=== PATIENT | male | born 1945 | race Caucasian/White ===

== ENCOUNTER 2017-07-04 11:56 | Emergency (ER) | payer MEDICARE, BC ==
[2017-07-04 12:02] VITALS: BP 158/69
[2017-07-04] MEDS ORDERED: Tetan/Diph/Pertus SYR(Tdap)* 0.5 ML SYR(BOOSTRIX) use SYR IM ONE (12:30)
--- NOTE | 2017-07-04 12:53 | UC ---
Bite Injury/Animal HPI - HPI Summary HPI Summary: PT WAS TAKING A WALK IN [facility] ABOUT 30 MIN AGO WHEN HE WAS BITTEN BY A DOG. DOG WAS ON A LEASH BUT THE OWNERS KEPT WALKING. HEALTH DEPT HAS BEEN NOTIFIED AND ARE LOOKING FOR THE DOG TO CONFIRM VACCINATION STATUS. PT HERE FOR TDAP BOOSTER. - History of Current Complaint Chief Complaint: UCBiteInjury Stated Complaint: DOG BITE Time Seen by Provider: 07/04/17 12:29 Hx Obtained From: Patient Severity Currently: None Severity Initially: Mild Pain Intensity: 0 Pain Scale Used: 0-10 Numeric Onset/Duration: Sudden Onset, Lasting Minutes, Still Present Type of Bite: Pet Has Animal Been Immunized?: Unknown Character: Abrasion/Laceration Aggravating Factor(s): Nothing Alleviating Factor(s): Nothing Associated Signs And Symptoms: Positive: Negative Hx of Bite: Unprovoked Animal Available for Observation: No Animal Control Notified: Yes - Allergies/Home Medications Allergies/Adverse Reactions: Allergies Allergy/AdvReac Type Severity Reaction Status Date / Time Rituximab [From Rituxan] Allergy Intermediate hives,flush Verified 07/04/17 12: 02 ing PMH/Surg Hx/FS Hx/Imm Hx Endocrine History: Hypothyroidism Cardiovascular History: Atrial Fibrillation Other Cancer History: MULTIPLE MYELOMA - Surgical History Surgical History: Yes Surgery Procedure, Year, and Place: tonsillectomy - Family History Known Family History: Positive: Hypertension - Social History Alcohol Use: Weekly Alcohol Amount: 1 glass Substance Use Type: None Smoking Status (MU): Former Smoker Amount Used/How Often: 1/2 ppd Length of Time of Smoking/Using Tobacco: 25 years Have You Smoked in the Last Year: No When Did the Patient Quit Smoking/Using Tobacco: 11/27/1990 - Immunization History Most Recent Influenza Vaccination: 2016 Most Recent Tetanus Shot: has had in past Most Recent Pneumonia Vaccination: 2014 Review of Systems Constitutional: Negative Skin: Other - ABRASION AT BITE SITE Respiratory: Negative Cardiovascular: Negative Gastrointestinal: Negative All Other Systems Reviewed And Are Negative: Yes Physical Exam Triage Information Reviewed: Yes Appearance: Well-Appearing, No Pain Distress, Well-Nourished Vital Signs: Initial Vital Signs Temp 97.6 F 07/04/17 11:57 Pulse 76 07/04/17 11:57 Resp 18 07/04/17 11:57 BP 158/69 07/04/17 11:57 Pulse Ox 100 08/08/17 11:57 Vital Signs Reviewed: Yes Eyes: Positive: Conjunctiva Clear ENT: Positive: Hearing grossly normal Neck: Positive: Supple Respiratory: Positive: No respiratory distress, No accessory muscle use Cardiovascular: Positive: Pulses Normal Abdomen Description: Positive: Soft Musculoskeletal: Positive: No Edema Neurological: Positive: Alert Psychological: Positive: Abnormal Response To Family Skin: Positive: Other - 5MM ABRASION LEFT POSTERIOR THIGH Bite Injury Course/Dx - Differential Dx/Diagnosis Provider Diagnoses: DOG BITE, TDAP BOOSTER Discharge - Discharge Plan Condition: Stable Disposition: HOME Patient Education Materials: Animal Bite (ED), Abrasion (ED) Referrals: Idris Joel MD [Primary Care Provider] - If Needed Additional Instructions: FOLLOW-UP WITH THE HEALTH DEPARTMENT ABOUT THE DOG'S VACCINATION STATUS. WE DISCUSSED TREATING YOU WITH ANTIBIOTICS TO PREVENT INFECTION SETTING IN THE BITE SITE. GIVEN THE SUPERFICIAL NATURE OF THE ABRASION WE HAVE DECIDED TO HOLD OFF FOR NOW, YOU SHOULD HEAL WITHOUT ANY PROBLEMS BUT BE VIGILANT AND SEEK FOLLOW-UP IF YOU DEVELOP SPREADING REDNESS OF THE SKIN, PURULENT DRAINAGE, FEVER , INCREASED PAIN OR ANY OTHER CONCERNING SYMPTOMS. TETANUS IMMUNIZATION GIVEN (TDAP): You have been given an immunization against tetanus. Please record this in your records. In general, a booster is needed only once every 10 years. The tetanus shot protects against tetanus or "lockjaw," which is a complication of certain wound infections (the tetanus shot cannot protect against the actual infection). The immunization site may become warm and red due to local reaction. If this occurs, apply warm compresses and take aspirin or ibuprofen to reduce inflammation and discomfort. Return for evaluation if the reaction becomes severe.
== END 2017-07-04 12:59 | disposition home or self-care (01) ==
LOC: UCEAST 11:56
DX: T14.8 Other injury of unspecified body region (principal); E03.9 Hypothyroidism, unspecified; I48.91 Unspecified atrial fibrillation; Z87.891 Personal history of nicotine dependence; C90.00 Multiple myeloma not having achieved remission; W54.0XXA Bitten by dog, initial encounter; Z23 Encounter for immunization
CPT/HCPCS: 90471; 90715; 99211; G0463

== ENCOUNTER 2017-07-14 07:19 | Emergency (ER) | payer MEDICARE, BC ==
[2017-07-14] MEDS ORDERED: Rabies Vaccine, PCEC INJ* 1 ml IM ONE (07:29)
--- NOTE | 2017-07-14 07:34 | UC ---
Bite Injury/Animal HPI - HPI Summary HPI Summary: BITTEN BY A DOG WHILE WALKING IN [facility] 07/04/17. CAME HERE AND HAD TDAP BOOSTED. HD WAS LOOKING FOR THE DOG TO CONFIRM VACCINATION STATUS BUT WERE UNABLE TO LOCATE THE DOG. PT HERE FOR RABIES PROPHYLAXIS. IS FEELING WELL TODAY. BITE WOUND WAS VERY SPFL AND IS NOW COMPLETELY HEALED. - History of Current Complaint Stated Complaint: rabies post exposure Time Seen by Provider: 07/14/17 07:27 Hx Obtained From: Patient Severity Currently: None Severity Initially: Mild Pain Intensity: 0 Pain Scale Used: 0-10 Numeric Onset/Duration: Sudden Onset Type of Bite: Pet Has Animal Been Immunized?: Unknown Character: Abrasion/Laceration Aggravating Factor(s): Nothing Alleviating Factor(s): Nothing Associated Signs And Symptoms: Positive: Negative Hx of Bite: Unprovoked Animal Available for Observation: No Animal Control Notified: Yes - Allergies/Home Medications Allergies/Adverse Reactions: Allergies Allergy/AdvReac Type Severity Reaction Status Date / Time Rituximab [From Rituxan] Allergy Intermediate hives,flush Verified 07/14/17 07: 33 ing PMH/Surg Hx/FS Hx/Imm Hx - Additional Past Medical History Additional PMH: RHEUMATOID ARTHRITIS Endocrine History: Hypothyroidism Cardiovascular History: Atrial Fibrillation Other Cancer History: MULTIPLE MYELOMA - Surgical History Surgical History: Yes Surgery Procedure, Year, and Place: tonsillectomy - Family History Known Family History: Positive: Hypertension - Social History Alcohol Use: None Alcohol Amount: 1 glass Substance Use Type: None Smoking Status (MU): Former Smoker Amount Used/How Often: 1/2 ppd Length of Time of Smoking/Using Tobacco: 25 years Have You Smoked in the Last Year: No When Did the Patient Quit Smoking/Using Tobacco: 11/27/1990 - Immunization History Most Recent Influenza Vaccination: 2016 Most Recent Tetanus Shot: UnKnown Most Recent Pneumonia Vaccination: 2014 Review of Systems Constitutional: Negative Skin: Negative Respiratory: Negative Cardiovascular: Negative Gastrointestinal: Negative Neurological: Negative All Other Systems Reviewed And Are Negative: Yes Physical Exam Triage Information Reviewed: Yes Appearance: Well-Appearing, No Pain Distress, Well-Nourished Vital Signs: Initial Vital Signs Temp 98.1 F 07/14/17 07:26 Pulse 63 07/14/17 07:26 Resp 14 07/14/17 07:26 BP 135/57 07/14/17 07:26 Pulse Ox 100 08/18/17 07:26 Vital Signs Reviewed: Yes Eyes: Positive: Conjunctiva Clear ENT: Positive: Hearing grossly normal Neck: Positive: Supple Respiratory: Positive: No respiratory distress, No accessory muscle use Cardiovascular: Positive: Pulses Normal Musculoskeletal: Positive: No Edema Neurological: Positive: Alert Psychological: Positive: Age Appropriate Behavior Skin: Negative: rashes Bite Injury Course/Dx - Differential Dx/Diagnosis Provider Diagnoses: RABIES PROPHYLAXIS S/P DOG BITE Discharge - Discharge Plan Condition: Stable Disposition: HOME Patient Education Materials: Rabies (ED), Rabies Vaccine (ED), Rabies Immune Globulin (By injection), Rabies Vaccine (By injection) Referrals: Idris Joel MD [Primary Care Provider] - If Needed Additional Instructions: FOLLOW-UP AT THE HEALTH DEPARTMENT IN 3 DAYS FOR YOUR NEXT RABIES VACCINATION.
[2017-07-14] MEDS ORDERED: Rabies Immune Globulin 10 ML* 150 UNIT/ML VIAL IM ONE (07:42)
[2017-07-14 07:48] VITALS: BP 135/57
[2017-07-14] MEDS ORDERED: Rabies VIRUS VACCINE, HDCV* 2.5 UNIT/ML 1 ML IM ONE (07:57)
== END 2017-07-14 08:45 | disposition home or self-care (01) ==
LOC: UCEAST 07:19
DX: Z20.3 Contact with and (suspected) exposure to rabies (principal); Z23 Encounter for immunization; M06.9 Rheumatoid arthritis, unspecified; E03.9 Hypothyroidism, unspecified; I48.91 Unspecified atrial fibrillation; Z85.79 Personal history of other malignant neoplasms of lymphoid, hematopoietic and related tissues; Z88.8 Allergy status to other drugs, medicaments and biological substances; Z87.891 Personal history of nicotine dependence
CPT/HCPCS: 90375; 90471; 90675; 96372; 99211; G0463

== ENCOUNTER 2018-03-07 17:19 | Emergency (ER) | payer MEDICARE, BC ==
[2018-03-07] MEDS ORDERED: NS 0.9% 1000 ML* 1,000 ML IV ONE (20:15)
[2018-03-07 20:17] LABS: ABS Basophils 0 10^3/ul (0-0.2); ABS Eosinophils 0 10^3/ul (0-0.6); ABS Lymphocytes 0.5 10^3/ul (1.0-4.8); ABS Monocytes 0.4 10^3/ul (0-0.8); ABS Neutrophils 4.1 10^3/ul (1.5-7.7); ABS Nucleated RBC 0 10^3/ul; Eosinophil % 0.2 % (0-6); Hematocrit 38 % (42-52); Hemoglobin 12.8 g/dl (14.0-18.0); Lymphocyte % 10.5 % (25-47); Mean Corpuscular HGB Conc 33 g/dl (31-36); Mean Corpuscular Hemoglobin 30 pg (27-31); Mean Corpuscular Volume 90 fL (80-94); Mean Platelet Volume 7.1 um3 (7.4-10.4); Nucleated Red Blood Cells % 0.1; Platelet Count 206 10^3/ul (150-450); Red Blood Count 4.26 10^6/ul (4.0-5.4); Red Cell Distribution Width 17 % (10.5-15); White Blood Count 5.1 10^3/ul (3.5-10.8)
[2018-03-07 20:28] LABS: Urine Appearance Clear; Urine Blood Negative (Negative); Urine Color Yellow; Urine Ketones Negative (Negative); Urine Protein Negative (Negative); Urine Specific Gravity 1.017 (1.010-1.030); Urine Urobilinogen Negative (Negative)
[2018-03-07 20:34] LABS: EGFR Non-African American 79.4 (>60)
[2018-03-07] MEDS ORDERED: Iohexol 300* (CONTRAST) 10 ML SDV IV ONE (21:29)
[2018-03-08 00:28] VITALS: BP 132/63
--- NOTE | 2018-03-08 06:47 | ED ---
Ifeoma Mazariegos Nilda, scribed for Leeanne Ortiz MD on 03/07/18 at 1951 . Abdominal Pain/Male - HPI Summary HPI Summary: This patient is a 72 year old M presenting to [facility] accompanied by family with a chief complaint of constant bilat lower abd pain since noon. The patient rates the pain 7/10 in severity. Symptoms aggravated by palpation and alleviated by nothing. Patient denies N/V. He states last BM was this morning. He denies PSHx on abd though has had colonoscopy in the past (pt cannot recall when). He notes no PMHx diverticulitis. - History of Current Complaint Chief Complaint: EDAbdPain Stated Complaint: ABD PAIN Time Seen by Provider: 03/07/18 19:41 Hx Obtained From: Patient Onset/Duration: Sudden Onset, Still Present Timing: Constant Severity Currently: Severe Pain Intensity: 7 Pain Scale Used: 0-10 Numeric Location: Other - lower abd pain Aggravating Factor(s): Other: - palpation Alleviating Factor(s): Nothing Associated Signs And Symptoms: Negative: Nausea, Vomiting - Allergies/Home Medications Allergies/Adverse Reactions: Allergies Allergy/AdvReac Type Severity Reaction Status Date / Time rituximab Allergy Hives Verified 03/07/18 17:24 Home Medications: Home Medications Iron 65 mg PO DAILY 03/07/18 [History Confirmed 03/07/18] Levothyroxine TAB* [Synthroid TAB*] 50 mcg PO DAILY 03/07/18 [History Confirmed 03/07/18] Multivitamins/Minerals TAB* [Theragran/minerals TAB*] 1 tab PO DAILY 03/07/18 [ History Confirmed 03/07/18] PMH/Surg Hx/FS Hx/Imm Hx Endocrine/Hematology History: Reports: Hx Thyroid Disease Cardiovascular History: Reports: Hx Hypertension, Hx Pacemaker/ICD Respiratory History: Denies: Hx Asthma Musculoskeletal History: Reports: Other Musculoskeletal History - Rheumatoid Arthritis Denies: Hx Scoliosis Sensory History: Reports: Hx Contacts or Glasses Opthamlomology History: Reports: Hx Contacts or Glasses Neurological History: Reports: Other Neuro Impairments/Disorders - RHEUMATOID ARTHRITIS Denies: Hx Headaches - Cancer History Cancer Type, Location and Year: multiple myloma - Surgical History Surgery Procedure, Year, and Place: tonsillectomy Hx Anesthesia Reactions: No - Immunization History Date of Tetanus Vaccine: Unk Date of Influenza Vaccine: Fall 2013 Infectious Disease History: No Infectious Disease History: Denies: Traveled Outside the [place] in Last 30 Days - Family History Known Family History: Positive: Hypertension - Social History Alcohol Use: None Alcohol Amount: 1 glass Substance Use Type: Reports: None Smoking Status (MU): Former Smoker Amount Used/How Often: 1/2 ppd Length of Time of Smoking/Using Tobacco: 25 years Have You Smoked in the Last Year: No Review of Systems Negative: Shortness Of Breath Positive: Abdominal Pain. Negative: Vomiting, Nausea All Other Systems Reviewed And Are Negative: Yes Physical Exam - Summary Physical Exam Summary: VITAL SIGNS: Reviewed. GENERAL: Patient is a well-developed and nourished male who is lying comfortable in the stretcher. Patient is not in any acute respiratory distress. HEAD AND FACE: No signs of trauma. No ecchymosis, hematomas or skull depressions. No sinus tenderness. EYES: PERRLA, EOMI x 2, No injected conjunctiva, no nystagmus. EARS: Hearing grossly intact. Ear canals and tympanic membranes are within normal limits. MOUTH: Oropharynx within normal limits. NECK: Supple, trachea is midline, no adenopathy, no JVD, no carotid bruit, no c- spine tenderness, neck with full ROM. CHEST: Symmetric, no tenderness at palpation LUNGS: Clear to auscultation bilaterally. No wheezing or crackles. CVS: Regular rate and rhythm, S1 and S2 present, no murmurs or gallops appreciated. ABDOMEN: Soft, LLQ tenderness. No signs of distention. No rebound no guarding, and no masses palpated. Bowel sounds are normal. EXTREMITIES: FROM in all major joints, no edema, no cyanosis or clubbing. NEURO: Alert and oriented x 3. No acute neurological deficits. Speech is normal and follows commands. SKIN: Dry and warm Triage Information Reviewed: Yes Vital Signs On Initial Exam: Initial Vitals Temp Pulse Resp BP Pulse Ox 98.5 F 87 14 168/64 98 03/07/18 17:20 03/07/18 17:20 03/07/18 17:20 03/07/18 17:20 03/07/18 17:20 Vital Signs Reviewed: Yes Diagnostics - Vital Signs Vital Signs Temp Pulse Resp BP Pulse Ox 03/07/18 19:20 98.5 F 77 16 148/63 97 03/07/18 17:20 98.5 F 87 14 168/64 98 - Laboratory Result Diagrams: 03/07/18 19:55 03/07/18 19:55 Lab Statement: Any lab studies that have been ordered have been reviewed, and results considered in the medical decision making process. - CT Abd/Pelvis CT Interpretation Completed By: Radiologist - Direct inguinal hernia on the left containing nonobstructed bowel. Dr. Ortiz reviewed this report. Re-Evaluation - Re-Evaluation First Eval Re-Evaluation Time: 23:59 Comment: Reviewed CT and labs with pt. Pt agreeable to D/C. Abdominal Pain Fem Course/Dx - Course Assessment/Plan: Pt is a 72 y/o with abd pain. Unremarkable exam. CT showed nonobstructing left inguinal hernia. Pt has had this for a year. Nml blood work. No pathology found for pt abd pain. Pt D/C with f/u with PCP. - Diagnoses Provider Diagnoses: Inguinal hernia, Abdominal pain Discharge - Sign-Out/Discharge Documenting (check all that apply): Discharge - home - Discharge Plan Condition: Improved Disposition: HOME Patient Education Materials: Inguinal Hernia (ED), Acute Abdominal Pain (ED) Referrals: Idris Joel MD [Primary Care Provider] - 2 Days Additional Instructions: RETURN TO THE EMERGENCY DEPARTMENT FOR CHANGING OR WORSENING SYMPTOMS. The documentation as recorded by the Ifeoma varela Nilda accurately reflects the service I personally performed and the decisions made by Angel wells Abdul, MD.
--- NOTE | 2018-03-08 07:43 | RAD ---
INDICATION: Abdominal pain . COMPARISON: None TECHNIQUE: Axial source images were obtained from the hemidiaphragms to the symphysis pubis following administration of oral and intravenous contrast. 93 mL Omnipaque 300 was utilized. Coronal and sagittal reconstructed images were acquired. Lung bases: There is minor airspace disease right lung base, likely atelectasis. The lung bases are otherwise clear. There is cardiac pacemaker artifact Liver: The liver is normal in size. There is a 1.4 cm hypodense lesion in the medial segment of the left hepatic lobe. There is a second low-density lesion in the inferior right hepatic lobe measuring 1.7 cm. Cysts or hemangiomas are considered statistically most likely. These can be evaluated with a follow-up ultrasound. There is no ductal dilatation. Gallbladder: There is cholelithiasis. Spleen: The spleen is at the upper range of normal in size. There are no masses. Pancreas: There is no focal pancreatic mass or ductal dilatation. Adrenal glands: There is no evidence of adrenal mass. Kidneys: The kidneys are normal in size and position. There are prompt nephrograms and there is prompt excretion bilaterally. There are no renal parenchymal masses. There is no evidence of nephrolithiasis. Adenopathy: There are multiple mesenteric lymph nodes which mild enlarged. There is also multiple small retroperitoneal lymph nodes. The largest of these measures up to 1.2 cm in transverse dimension. Fluid collections: There are no free or localized fluid collections. Vessels:There are no significant atherosclerotic changes involving the aorta. There is no focal aneurysm. The iliac vessels are normal in caliber. The IVC appears normal. GI tract: There are no acute CT bowel findings. There is no obstruction. There is a small hiatal hernia. The small bowel appears normal. The lower GI tract is remarkable for a left inguinal hernia containing left colon and a small amount of fluid. The cecum, ileocecal valve, and terminal ileum appear normal. Pelvic organs: The uterus and adnexa appear normal Bladder: There are no bladder masses. Abdominal and pelvic soft tissues: The extraperitoneal abdominal and pelvic soft tissues appear normal.. Osseous structures: There are no acute osseous findings. Other: None IMPRESSION: 1. Small hepatic cysts or hemangiomas. These can be evaluated with follow-up ultrasonography. 2. Cholelithiasis. 3. Small hiatal hernia 4. Left inguinal hernia containing sigmoid colon. No findings of obstruction.
== END 2018-03-08 00:28 | disposition home or self-care (01) ==
LOC: ED 17:19
DX: K40.90 Unilateral inguinal hernia, without obstruction or gangrene, not specified as recurrent (principal); R10.30 Lower abdominal pain, unspecified; K80.20 Calculus of gallbladder without cholecystitis without obstruction; K44.9 Diaphragmatic hernia without obstruction or gangrene; E07.9 Disorder of thyroid, unspecified; I10 Essential (primary) hypertension; Z95.810 Presence of automatic (implantable) cardiac defibrillator; M06.9 Rheumatoid arthritis, unspecified; Z85.820 Personal history of malignant melanoma of skin; Z87.891 Personal history of nicotine dependence
CPT/HCPCS: 36415; 74177; 80053; 81003; 83690; 85025; 86140; 96360; 96361; 99283; Q9967

== ENCOUNTER → 2019-06-20 07:14 | Day surgery (SDC) | payer MEDICARE, BC ==
--- NOTE | 2019-06-04 07:13 | HP ---
CC: Dr. Idris Joel; Dr. Shahram Nagel; Dr. Andrés Vallejo * ADMISSION HISTORY AND PHYSICAL: DATE OF ADMISSION: 06/20/19 ATTENDING SURGEON: Dr. Flora Romero * (GAYLE Garcia, dictating). CHIEF COMPLAINT: Left inguinal hernia. HISTORY OF PRESENT ILLNESS: This is a 73-year-old male with greater than 20- year history of left inguinal hernia. It has never been symptomatic in terms of pain or discomfort, though it has increased in size in recent years. He does not relate the increase in size to activity, but occasionally will note an association with increased intestinal gas. The hernia typically self-reduces when he is recumbent or supine. He has not had any other specific GI or symptoms. He was referred and seen by Dr. Romero on 04/03/19, at which time her exam confirmed the presence of a nontender reducible moderately large left inguinal hernia. No hernia was noted on the right. Dr. Romero has discussed with him the indications for surgery, the risks, benefits, and alternatives. He would like to proceed as scheduled with open repair of left inguinal hernia with mesh. PAST MEDICAL HISTORY: 1. Paroxysmal atrial fibrillation (on chronic anticoagulation; see below). 2. Sick sinus syndrome (status post pacemaker placement). 3. Rheumatoid arthritis. 4. Monoclonal gammopathy of uncertain significance, stable (followed by Dr. Vallejo). 5. Hypothyroidism. 6. Osteoporosis. PAST SURGICAL HISTORY: Previous surgeries include: 1. Tonsillectomy, remotely. 2. Pacemaker placement in 2016. CURRENT MEDICATIONS: 1. Prolia 60 mg subcutaneously q.6 months. 2. Multaq 400 mg b.i.d. 3. Metoprolol succinate extended release 25 mg one-half tablet once daily. 4. Actemra 162 mg subcutaneously every 2 weeks. 5. Methotrexate 2.5 mg 4 tablets once weekly. 6. Digoxin 125 mcg once daily. 7. Folic acid 1 mg once daily. 8. Multivitamin once daily. 9. Levothyroxine 75 mcg once daily. 10. Xarelto 20 mg once daily (the patient to stop after his 06/18/19 dose). 11. Ferrous sulfate 325 mg once daily. 12. Vitamin D 1000 International Units once daily. 13. Colace 100 mg daily. 14. Metrogel 1% topical once daily (for rosacea). DRUG ALLERGIES: RITUXAN (hives). FAMILY HISTORY: Negative for anesthesia problems, bleeding or clotting disorders. SOCIAL HISTORY: The patient lives alone, but does have 2 daughters who live close by. 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 He is a former smoker who quit 30 or more years ago. He drinks on average 1 alcoholic drink per month and denies any other recreational drug use. REVIEW OF SYSTEMS: General: No recent constitutional symptoms or acute illnesses, other than described above. He states his weight is fairly stable. HEENT: No visual changes noted. No difficulty swallowing. Cardiovascular: No chest pain, palpitations. See attached notes from cardiology including recent echocardiogram from 05/01/19. Respiratory: No shortness of breath, chronic cough, history of asthma, or COPD. GI: No upper intestinal symptoms. Of note, he has occasional constipation, but only requires Colace. He states his last colonoscopy was within the past 5 to 10 years. He is in discussion with his PCP regarding further screening, but no concerning interval symptoms. : No problems reported. Hematological/ Oncological: MGUS as noted above, followed by Dr. Vallejo and fan. Apparent iron deficiency anemia. Musculoskeletal: Rheumatoid arthritis, on current therapy as above with followup with An Vallejo in the rheumatology office next. He will discuss any modifications of his medication regimen at that time. PHYSICAL EXAMINATION GENERAL: Well-nourished, somewhat thin male, in no acute distress. VITAL SIGNS: Height 72 inches, weight 152 pounds. Temperature 97.5, blood pressure 124/62, pulse 78, respirations 16. HEENT: Pupils equal, round, reactive. EOMs intact. No conjunctival pallor. Oropharynx: Teeth in good repair. He has full upper and partial lower dentures. No intraoral lesions. NECK: No lymphadenopathy, thyromegaly, or masses. LUNGS: Clear to auscultation. No rales or wheezes. Pacemaker in left anterior chest wall. HEART: Regular rate and rhythm. No murmur appreciated. ABDOMEN: Soft, nontender to palpation. No palpable masses or organomegaly with the exception of a reducible mass in the left groin in the supine position consistent with inguinal hernia. This was also examined in the standing position, at which point it was not easily reducible, but it was nontender. GENITALIA: Otherwise, normal. No palpable hernia on the right. RECTAL: Not done. BACK: No spinous process or CVA tenderness. EXTREMITIES: No edema. NEUROLOGICAL: Grossly intact. SKIN: Warm and dry. No suspicious rashes or lesions noted. He has one area of ecchymosis in the upper abdomen from recent injection. IMPRESSION: Left inguinal hernia. PLAN: Open repair of left inguinal hernia with mesh. GAYLE GARCIA [id number]/[facility] #: [id number] MTDD
[~2019-06-20 07:14] MED LIST: Buffered Lidocaine 1% SYRIN* 1 ML/SYRINGE INTRADERM ONE; Lactated Ringers 1000 ML Bag* 1,000 ML IV SCH; Midazolam* 1 MG/ML 2 ML VIAL (2 MG) ONE; Propofol* 10 MG/ML 20 ML BTL ONE; ceFAZolin 2 GM in NS PREMIX(*) 2 GM/100 ML BAG IVPB ONE; fentaNYL* 50 MCG/ML 2 ML VIAL (100 MCG VIAL) ONE
--- NOTE | 2019-06-20 13:46 | OP ---
Operative Report - Blank - Operative Report Date of Operation: 06/20/19 Note: Brief Operative Note Preop Dx: Left inguinal hernia Postop Dx: same, indirect Procedure: open repair LIH w/ mesh Anesthesia: local MAC Surgeon: [employer] Supervisor: GAYLE Juárez; EMRE Griffin Fluids: 1500 ml RL EBL: < 10 ml Specimen: cord lipoma Drains: done Findings: dictated
[2019-06-20 14:50] VITALS: BP 142/60
--- NOTE | 2019-06-20 15:17 | OP ---
DATE OF OPERATION: 06/20/19 - [facility] DATE OF : 41 SERVICE: General Surgery. ATTENDING SURGEON: Flora Romero MD POUNCER MACHINE: GAYLE Garcia ANESTHESIOLOGIST: Radha Frost MD ANESTHESIA: MAC/local anesthesia. PRE-OP DIAGNOSIS: Left inguinal hernia. POST-OP DIAGNOSIS: Left indirect inguinal hernia. OPERATIVE PROCEDURE: Open left inguinal hernia repair with mesh. INDICATIONS FOR SURGERY: Mr. Whatley is a very pleasant 73-year-old gentleman with a history of rheumatoid arthritis, atrial fibrillation, who is status post pacemaker, with a longstanding history of a large, reducible left inguinal hernia that has become increasingly symptomatic. Therefore, he wished to have it electively repaired. He understood the risks, benefits, and alternatives of the procedure and he wished to proceed. DESCRIPTION OF PROCEDURE: The patient was brought back to the operating room and placed on the operating table in the supine position. Sequential compression devices were placed in the bilateral lower extremities for DVT prophylaxis. Antibiotics were administered. The patient underwent local sedation and MAC anesthesia and then his left groin, testicle and penis were prepped and draped in normal sterile fashion. Prior to beginning the procedure , a time-out was performed, verifying the patient's name, MR number, and the procedure to be performed as well as the laterality. On external exam prior to beginning the procedure, the patient did have a large, soft and reducible left inguinal hernia. It was reduced prior to beginning the surgery. Local anesthesia consisting of 20 cc of 0.25% Marcaine and 1% lidocaine was administered to the left groin area and ASIS. Next, an approximately 6 cm oblique incision was made 2 fingerbreadths above the left inguinal ligament. The skin was divided down through the subcutaneous tissue. Zayra's fascia was divided and the subcutaneous tissue was divided down until the external oblique aponeurosis was identified. The aponeurosis was then opened with a 15 blade and it was sharply divided using scissors, superiorly towards the ASIS and inferiorly towards the external ring. Once the leaflets were completely opened up, they were retracted laterally and using a peanut, the cord structures were swept away from the inguinal ligaments. The cord structures and hernia were then encircled with a [place] drain and retracted laterally and then with great care, the indirect hernia sac was from the cord structures and cremasteric muscles. The vas deferens was identified and protected. There was a large cord lipoma that was identified and resected and carried off as a specimen. Once the entire indirect hernia sac was from the cord structures, it was able to be reduced until the deep internal ring. The cord structures were examined, they looked to be completely intact. The direct space was examined and there do not appear to be a significant direct hernia. Attention was then turned towards repairing the floor of the inguinal canal. A 6 x 6 soft polypropylene mesh was selected and cut to size to fit the floor of inguinal canal. Using a 3-0 Vicryl suture, the mesh was secured to the pubic tubercle and the 3-0 Vicryl was sutured to the inguinal ligament in a running fashion from the pubic tubercle towards the the deep inguinal ring. Once this was done, 3 interrupted sutures were used to secure the mesh medially to the conjoint tendon and 2 tails were created to be placed around the cord structures. They were secured around the cord structures using a 3-0 Vicryl suture. An additional 3-0 Vicryl suture was used to secure the mesh more superiorly towards the deep inguinal ring. Once this was done, the floor looked very well intact. The cord structures laid very nicely on top of the mesh. The inguinal canal was irrigated using warm saline. Hemostasis was obtained and then after this was done, the external oblique aponeurosis was reapproximated using a running 3-0 Vicryl suture, recreating the superficial external ring. Once this was done, the subcutaneous tissue was irrigated again. Zayra's was closed using interrupted 3-0 Vicryl sutures and then the skin was closed using a running 4-0 Monocryl suture. Sterile dressing was then placed. The patient was awoken from his anesthesia. At the end of the case, all counts were correct and I was present during the entirety of the case. The patient was taken to the PACU in stable condition. CC: Idris Joel MD [id number]/[facility] #: [id number] EJ
== END | disposition home or self-care (01) ==
LOC: OR 07:14
PROVIDERS: ATTEND Surgery
DX: K40.90 Unilateral inguinal hernia, without obstruction or gangrene, not specified as recurrent (principal); M06.9 Rheumatoid arthritis, unspecified; Z95.0 Presence of cardiac pacemaker; I48.0 Paroxysmal atrial fibrillation; Z79.01 Long term (current) use of anticoagulants; I49.5 Sick sinus syndrome; M81.0 Age-related osteoporosis without current pathological fracture; D47.2 Monoclonal gammopathy
CPT/HCPCS: 88304; C1781; J0690; J2250; J2704; J3010

== ENCOUNTER 2023-04-25 13:12 | Inpatient (IN) ==
[2023-04-25] MEDS ORDERED: NS 0.9% 1000 ml BAG 1,000 ML IV ONE (13:57)
[2023-04-25 15:00] LABS: Hematocrit 30.5 % (38-53); Hemoglobin 10.8 g/dL (13.2-16.3); Mean Corpuscular Hemoglobin 34.6 pg (27-33); Mean Corpuscular Hgb Conc 35.3 g/dL (31-36); Mean Platelet Volume 7.2 fL (7.5-11.2); Platelet Count 93 10^3/uL (150-450); Red Blood Count 3.11 10^6/uL (4.06-5.63); Red Cell Distribution Width 15.6 % (12-17); White Blood Count 2.5 10^3/uL (3.6-10.2)
[2023-04-25 15:19] LABS: High Sens Troponin Baseline 341 pg/mL (<20)
[2023-04-25 15:37] LABS: RBC Morphology Normal (Normal)
[2023-04-25 15:38] LABS: ABS Monocytes 0.3 10^3/uL (0.0-1.1); ABS Neutrophils 2.1 10^3/uL (1.5-7.6); Lymphocyte % 1.8 %; Nucleated Red Blood Cells % 0.2 /100 WBC (0.0-0.4)
[2023-04-25 15:55] LABS: TSH Ultra Thyroid Stim Horm 1.68 mcIU/mL (0.34-5.60)
[2023-04-25 15:56] LABS: Urine Appearance Clear; Urine Bilirubin Negative (Negative); Urine Blood 2+ (Negative); Urine Color Yellow; Urine Glucose Negative (Negative); Urine Ketones Negative (Negative); Urine Nitrite Negative (Negative); Urine Protein 1+(30 mg/dL) (Negative); Urine Specific Gravity 1.015 (1.002-1.030); Urine Urobilinogen Negative (Negative)
[2023-04-25 15:59] LABS: Urine Bacteria Absent (Absent); Urine Red Blood Cell Trace(0-2/hpf) (Absent); Urine White Blood Cell Trace(0-5/hpf) (Absent)
[2023-04-25 16:21] LABS: ALT 22 U/L (7-52); AST 60 U/L (13-39); Albumin 3.3 g/dL (3.2-5.2); Albumin/Globulin Ratio 2.2 (1-3); Alcohol, S < 13 mg/dL (<13); Alkaline Phosphatase 59 U/L (35-149); Anion Gap 8 mmol/L (2-16); Blood Urea Nitrogen 17 mg/dL (6-24); CO2 Carbon Dioxide 22 mmol/L (22-32); Calcium 7.1 mg/dL (8.6-10.3); Chloride 106 mmol/L (101-111); Creatinine, Serum 0.89 mg/dL (0.67-1.17); Globulin 1.5 g/dL (2-4); Glucose 94 mg/dL (70-100); Magnesium 1.4 mg/dL (1.9-2.7); Potassium 3.7 mmol/L (3.5-5.0); Sodium 136 mmol/L (135-145); Total Protein 4.8 g/dL (6.4-8.9); eGFR CKD-EPI 87.2 (>60)
[2023-04-25 16:47] LABS: High Sensitivity Troponin 1 Hr 321 pg/mL (<20)
[2023-04-25] MEDS ORDERED: Magnesium Sulfate IV 3 GM in NS 0.9% 100 ml BAG 100 ML IVPB ONE (17:17)
[2023-04-25] MEDS ORDERED: Ondansetron 4 mg VIAL 2 MG/ML 2 ml VIAL IV PRN (17:54)
[2023-04-25] MEDS: NS 0.9% 1000 ml BAG 1,000 ML IV SCH (18:37)
[2023-04-25 19:07] LABS: High Sensitivity Troponin 3 Hr 315 pg/mL (<20)
[2023-04-25] MEDS: Nystatin SUSPENSION 100,000 UNITS/ML UDC PO SCH (22:40)
[2023-04-26] MEDS: NS 0.9% 1000 ml BAG 1,000 ML IV SCH (04:26)
[2023-04-26 04:44] LABS: ABS Monocytes 0.2 10^3/uL (0.0-1.1); Eosinophil % 0.1 %; Hematocrit 27.3 % (38-53); Hemoglobin 9.8 g/dL (13.2-16.3); Lymphocyte % 2.1 %; Mean Corpuscular Hemoglobin 35.1 pg (27-33); Mean Corpuscular Hgb Conc 35.8 g/dL (31-36); Mean Corpuscular Volume 97.9 fL (80-97); Mean Platelet Volume 6.9 fL (7.5-11.2); Nucleated Red Blood Cells % 0.1 /100 WBC (0.0-0.4); Platelet Count 74 10^3/uL (150-450); Red Blood Count 2.79 10^6/uL (4.06-5.63); Red Cell Distribution Width 16.2 % (12-17); White Blood Count 2.3 10^3/uL (3.6-10.2)
[2023-04-26 05:00] LABS: Albumin 3.2 g/dL (3.2-5.2); Albumin/Globulin Ratio 2.1 (1-3); Calcium 7.2 mg/dL (8.6-10.3); Creatinine, Serum 0.95 mg/dL (0.67-1.17); Globulin 1.5 g/dL (2-4); Magnesium 2.1 mg/dL (1.9-2.7); Potassium 3.9 mmol/L (3.5-5.0); Total Bilirubin 0.6 mg/dL (0.2-1.0); Total Protein 4.7 g/dL (6.4-8.9); eGFR CKD-EPI 81.4 (>60)
[2023-04-26] MEDS: Lactated Ringers 1000 ml BAG 1,000 ML IV SCH ×3 (08:40→20:35)
[2023-04-26] MEDS: Multivitamins/Minerals TAB PO SCH (08:40)
[2023-04-26] MEDS: Nystatin SUSPENSION 100,000 UNITS/ML UDC PO SCH ×4 (11:12→20:39)
[2023-04-27] MEDS: Lactated Ringers 1000 ml BAG 1,000 ML IV SCH ×2 (03:19→09:35)
[2023-04-27 06:32] LABS: Potassium 3.7 mmol/L (3.5-5.0)
[2023-04-27 06:38] LABS: Creatinine, Serum 0.85 mg/dL (0.67-1.17); eGFR CKD-EPI 88.4 (>60)
[2023-04-27 06:57] LABS: ABS Monocytes 0.2 10^3/uL (0.0-1.1); ABS Neutrophils 0.9 10^3/uL (1.5-7.6); ABS Nucleated RBC 0.01 10^3/ul; Eosinophil % 0.4 %; Hematocrit 23.5 % (38-53); Hemoglobin 8.4 g/dL (13.2-16.3); Lymphocyte % 3.6 %; Mean Corpuscular Hemoglobin 34.6 pg (27-33); Mean Corpuscular Hgb Conc 35.6 g/dL (31-36); Mean Corpuscular Volume 97.2 fL (80-97); Mean Platelet Volume 7.8 fL (7.5-11.2); Nucleated Red Blood Cells % 0.7 /100 WBC (0.0-0.4); Platelet Count 59 10^3/uL (150-450); Red Blood Count 2.42 10^6/uL (4.06-5.63); Red Cell Distribution Width 15.2 % (12-17); White Blood Count 1.2 10^3/uL (3.6-10.2)
[2023-04-27] MEDS: Nystatin SUSPENSION 100,000 UNITS/ML UDC PO SCH ×4 (08:56→21:32)
[2023-04-27] MEDS: Multivitamins/Minerals TAB PO SCH (08:58)
[2023-04-28 07:01] LABS: Anion Gap 7 mmol/L (2-16); Blood Urea Nitrogen 11 mg/dL (6-24); CO2 Carbon Dioxide 24 mmol/L (22-32); Calcium 7.7 mg/dL (8.6-10.3); Chloride 106 mmol/L (101-111); Creatinine, Serum 0.82 mg/dL (0.67-1.17); Glucose 88 mg/dL (70-100); Potassium 3.7 mmol/L (3.5-5.0); Sodium 137 mmol/L (135-145); eGFR CKD-EPI 89.4 (>60)
[2023-04-28 07:05] LABS: Digoxin < 0.3 ng/ml (0.8-2.0)
[2023-04-28 08:09] LABS: ABS Monocytes 0.3 10^3/uL (0.0-1.1); ABS Neutrophils 1.5 10^3/uL (1.5-7.6); Eosinophil % 0.3 %; Hemoglobin 9.6 g/dL (13.2-16.3); Lymphocyte % 2.7 %; Mean Corpuscular Hemoglobin 35.3 pg (27-33); Mean Corpuscular Hgb Conc 35.4 g/dL (31-36); Mean Corpuscular Volume 99.6 fL (80-97); Mean Platelet Volume 7.5 fL (7.5-11.2); Nucleated Red Blood Cells % 0.1 /100 WBC (0.0-0.4); Platelet Count 67 10^3/uL (150-450); Red Blood Count 2.71 10^6/uL (4.06-5.63); Red Cell Distribution Width 15.4 % (12-17); White Blood Count 1.8 10^3/uL (3.6-10.2)
[2023-04-28] MEDS: Multivitamins/Minerals TAB PO SCH (09:21)
[2023-04-28] MEDS: Nystatin SUSPENSION 100,000 UNITS/ML UDC PO SCH ×2 (09:22→13:49)
[2023-04-28 09:40] VITALS: BP 145/56
== END 2023-04-28 14:06 | disposition swing bed (61) | DRG 178 ==
LOC: EDHOLD 13:12 → ED 13:12 → MEDTELE 20:09 → SUATTDRO 04-26 17:28
PROVIDERS: ADMIT Internal Medicine; ATTEND Internal Medicine